=== PATIENT | female | born 1960 | race Caucasian/White ===

== ENCOUNTER 2018-08-18 08:37 | Inpatient (IN) ==
--- NOTE | 2018-08-05 10:40 | Anesthesiology Consultation ---
Date of Service August 05, 2018 Assessment & Plan (1) Encounter for pre-operative examination: Chart Review Chart Review: Acceptable Risk for Surgery and Patient seen in Pre Admission Testing Teaching & Discussion Instructed NPO after midnight before surgery, except medications with 15 cc of water. Medication instructions provided according to the PAT guidelines. History Surgery Operation Date: 08/18/18 08:30 Proposed Procedures p Right Total Knee Arthroplasty - Shayan Mares MD Height/Weight Height: 5 ft 3.5 in Weight: 70.7 kg Allergies Allergy/AdvReac Type Severity Reaction Status Date / Time Milk Containing Products Allergy Intermediate AGGRAVATES Verified 07/31/18 09:13 ASTHMA Sulfa (Sulfonamide Allergy Intermediate Rash Verified 07/31/18 09:11 Antibiotics) BEEF Allergy Intermediate AGGRAVATES Uncoded 07/31/18 09:13 ASTHMA PORK AdvReac Intermediate GERD Uncoded 07/31/18 09:13 Medications Home Medications Medication Instructions Recorded Confirmed Last Taken Allergy Shots 1 dose IM UD 07/31/18 07/31/18 Unknown fexofenadine [Jessica Allergy] 180 mg PO DAILY 07/31/18 07/31/18 Unknown fluticasone propionate [Flovent 1 puff INHALATION BID 07/31/18 07/31/18 Unknown HFA] sertraline [Zoloft] 25 mg PO QAM 07/31/18 07/31/18 Unknown Past Medical History Medical History Anxiety Asthma VERY rare rescue inhaler use Cardiac murmur Had echo 15+ years ago, was told of no concern. Degenerative disc disease Depression GERD (gastroesophageal reflux disease) NO MEDICATIONS, CONTROLLED WITH DIET. Migraine Osteoarthritis Past Family History Family History Mother Family history of diabetes mellitus Aunt Family history of diabetes mellitus Uncle Family history of diabetes mellitus Past Surgical History Surgical History H/O hemorrhoidectomy History of arthroscopy LEFT KNEE History of bilateral tubal ligation History of section X2 History of colonoscopy History of discectomy L4-L5 History of esophagogastroduodenoscopy (EGD) History of hysterectomy JIMMY WITH BSO History of tonsillectomy S/P LASIK surgery of both eyes Past Anesthesia History No Hx of Anesthesia Complications (other than single PONV episode) and No Family Hx of Anesthesia Complications History of PONV Yes (single episode with hemorrhoidectomy) Motion Sickness Screening History of Motion Sickness: No Social History Smoking Status: Never smoker Do You Dip or Chew Tobacco: No Hx Alcohol Use: Yes Alcohol type: beer and wine alcohol intake frequency: 0-2 drinks per day (1-2 daily) Hx Substance Use: No substance use type: does not use Exercise / Class Metabolic Activity II 4-5 Yardwork/Stairs/Walk up hill (Denies CP or SOB with stairs, using cane fo uneven surfaces/longer distances) Review of Systems Pt denies any recent chest pain, shortness of breath, palpitations, cough, fever or URI. +sinus infection in past 30 days s/p Z-pack, resolved. Physical Exam Vital Signs BP: 125/83 P: 82bpm SPO2: 97% RA T: 98.5 F R: 16 ENMT Mouth: + dentures (Permanent bottom, does not come out at all); no chipped teeth and no loose teeth Thyromental Distance: > or= 3.5 Finger Breadths (4) Mallampati Class: II Neck normal visual inspection; neck extension not limited Respiratory normal respiratory effort Auscultation: lungs clear to auscultation bilaterally Cardiovascular Rate/Rhythm: regular rate and regular rhythm Heart Sounds: + murmur (I/V systolic RSB) Vessels: no carotid bruit Extremities: no edema Testing Electrocardiogram Date: 08/05/18 Findings: + NSR @ (71) Chest X-Ray Date: 08/05/18 Findings: + NAD Laboratory Results 08/05/18 11:12 08/05/18 11:12 Blood Type A Positive 08/05/18 11:12 Antibody Screen NEGATIVE 08/05/18 11:12 PT 9.8 Seconds (9.0-12.0) 08/05/18 11:12 INR 1.0 (0.9-1.1) 08/05/18 11:12 APTT 25.6 Seconds (21.0-31.0) 08/05/18 11:12 Hemoglobin A1c 5.6 % (4.5-5.6) 08/05/18 11:12 Urine Color Yellow 08/05/18 11:12 Urine Appearance Clear (Clear) 08/05/18 11:12 Urine pH 7.0 (4.5-7.5) 08/05/18 11:12 Ur Specific Alexander 1.010 (1.000-1.030) 08/05/18 11:12 Urine Protein Negative (Negative) 08/05/18 11:12 Urine Glucose (UA) Negative (Negative) 08/05/18 11:12 Urine Ketones Negative (Negative) 08/05/18 11:12 Urine Nitrite Negative (Negative) 08/05/18 11:12 Ur Leukocyte Esterase Negative (Negative) 08/05/18 11:12 Urine WBC (Auto) 0 /hpf (0-5) 08/05/18 11:12 Urine RBC (Auto) 0-4 /hpf (0-4) 08/05/18 11:12 U Hyaline Cast (Auto) 0 /lpf (0-5) 08/05/18 11:12 U Epithel Cells (Auto) 5-10 /lpf (0-5) H 08/05/18 11:12 Urine Bacteria (Auto) Negative (Negative) 08/05/18 11:12
--- NOTE | 2018-08-05 10:41 | PAT Medication Instructions ---
Medication Instructions Date of Service August 05, 2018 Home Medications Allergy Shots 1 dose IM UD fexofenadine [Jessica Allergy] 180 mg PO DAILY fluticasone propionate [Flovent] 1 puff INHALATION BID sertraline [Zoloft] 25 mg PO QAM Continue as directed Allergy Shots 1 dose IM UD DO NOT take the morning of surgery fexofenadine [Jessica Allergy] 180 mg PO DAILY Take morning of surgery With a small sip of water, OTHERWISE NOTHING TO EAT OR DRINK AFTER MIDNIGHT: fluticasone propionate [Flovent] 1 puff INHALATION BID sertraline [Zoloft] 25 mg PO QAM Take evening before surgery fluticasone propionate [Flovent] 1 puff INHALATION BID Other Notes If you have any questions please call us at [phone] or [phone] or [phone] or [phone]
[2018-08-05 12:00] LABS: Basophils # (auto) 0.03 K/uL (0-0.2); Basophils % (auto) 0.6 %; Eosinophils # (auto) 0.03 K/uL (0-0.5); Eosinophils % (auto) 0.6 %; Hematocrit (blood only) 39.3 % (37-47); Hemoglobin 13.1 g/dL (12.0-16.0); Immature Granulocytes # (auto) 0.01 K/uL (0.00-0.02); Immature Granulocytes % (auto) 0.2 %; Lymphocytes # (auto) 1.27 K/uL (1.2-3.4); Lymphocytes % (auto) 23.5 %; Mean Corpuscular Hgb Conc 33.3 g/dL (32-36); Mean Corpuscular Volume 93.8 fL (80-100); Mean Platelet Volume 9.2 fL (7.4-10.4); Monocytes # (auto) 0.55 K/uL (0.11-0.59); Monocytes % (auto) 10.2 %; Neutrophils # (auto) 3.52 K/uL (1.4-6.5); Neutrophils % (auto) 64.9 %; Platelet Count 359 K/uL (130-400); RDW Coefficient of Variation 12.7 % (11.5-14.5); RDW Standard Deviation 43.5 fL (36.4-46.3); Red Blood Count 4.19 M/uL (4.2-5.4); White Blood Count 5.41 K/uL (4.8-10.8)
[2018-08-05 12:05] LABS: Appearance Urine Clear (Clear); Bacteria Urine Automated Negative (Negative); Bilirubin Urine Negative (Negative); Blood Urine Trace (Negative); Cast Urine Automated 0 /lpf (0-5); Color Urine Yellow; Glucose Urine UA Negative (Negative); Ketones Urine Negative (Negative); Leukocyte Esterase Urine Negative (Negative); Nitrite Urine Negative (Negative); Protein Urine Negative (Negative); RBC Urine Automated 0-4 /hpf (0-4); Urobilinogen Urine Negative (Negative); WBC Urine Automated 0 /hpf (0-5)
[2018-08-05 12:08] LABS: Albumin Level 3.7 gm/dl (3.4-5.0); BUN Creatinine Ratio 22.1 (10-20); Calcium 8.6 mg/dl (8.5-10.1); Creatinine Clr Calc Pharmacy 79.1 ml/min; Est GFR (African American) 104.5; Est GFR (Non-African American) 90.1; Potassium 4.1 mmol/L (3.5-5.1)
--- NOTE | 2018-08-05 12:09 | XRay Report ---
XR chest Pre-admission PA/Lat CLINICAL HISTORY: pat preoperative COMPARISON STUDY: No previous studies for comparison. FINDINGS: The bones soft tissues and hemidiaphragms are normal. The cardiomediastinal silhouette is n ormal. The lungs are clear. The pulmonary vasculature is normal. IMPRESSION: Negative chest. The above report was generated using voice recognition software. It may contain grammatical, syntax or spelling errors. Electronically signed by: Navin Hylton M.D. 08/05/2018 12:08 PM
[2018-08-05 12:15] LABS: Partial Thromboplastin Ratio 0.9; Partial Thromboplastin Time 25.6 Seconds (21.0-31.0); Prothrombin Time 9.8 Seconds (9.0-12.0)
[2018-08-05 12:22] LABS: Estimated Average Glucose 114 mg/dl; Hemoglobin A1C 5.6 % (4.5-5.6)
--- NOTE | 2018-08-12 16:04 | History and Physical Report ---
DATE OF ADMISSION: 08/18/2018 CHIEF COMPLAINT: Right knee pain. HISTORY OF PRESENT ILLNESS: The patient is a 57-year-old female with known severe patellofemoral arthritis about her bilateral knees, right worse than left. She has pain and disability with activities of daily living. She has pain with prolonged weightbearing and standing activities. She has difficulty with any kneeling, bending, or squatting activities. Due to ongoing pain and disability with activities of daily living, she now desires to proceed with right total knee arthroplasty. PAST MEDICAL HISTORY: Heart murmur, asthma, osteoarthritis, acid reflux. PAST SURGICAL HISTORY: x2, hysterectomy, left knee lateral release, left foot, low back surgery, tonsillectomy. MEDICATIONS: Zoloft 25 mg daily, Flovent inhaler twice daily, Jessica and Zyrtec daily. ALLERGIES: SULFA AND SEASONAL ALLERGIES. SOCIAL HISTORY AND REVIEW OF SYSTEMS: Noncontributory. PHYSICAL EXAMINATION: GENERAL: Well-nourished, well-developed female who appears stated age. HEENT: Normocephalic, atraumatic, extraocular movements intact, oropharynx pink and moist. NECK: Supple without adenopathy. LUNGS: Clear to auscultation bilaterally. HEART: Regular rate and rhythm. ABDOMEN: Soft, nontender, nondistended. EXTREMITIES: Upper extremities are within normal limits. The right knee has a neutral alignment. Range of motion is approximately 0-130 degrees. She has severe crepitus with range of motion. X-RAYS: X-rays were reviewed. She has moderate tibiofemoral arthritis with medial joint line osteophytes and mild joint line narrowing. She has severe patellofemoral arthritis with loss of the joint space and large osteophytes. IMPRESSION: Right knee degenerative joint disease, primarily patellofemoral in nature. PLAN: Risks versus benefits were discussed, consent was obtained. Will proceed with right total knee arthroplasty as indicated.
[~2018-08-18 08:37] MED LIST: ACETAMINOPHEN 500 MG TAB PO SCH; BUPIVACAINE 0.5 % 5 MG/1 ML PF 10ML VIAL ONE; CEFAZOLIN 1000MG 1,000 MG/7.5 ML SYR IV SCH; CeleBREX 200 MG CAP PO SCH; EPINEPHrine INJ 1 MG/ML AMP ONE; FAMOTIDINE 20 MG TAB PO SCH; GABAPENTIN 300 MG x 2 PO SCH; LR 500ML BOLUS, THEN 15ML/HR IV SCH; ROPIVACAINE 0.5% 5 MG/ML 30 ML VIAL ONE; ROPIVACAINE 0.5% HCL/PF 150 MG, BUPIVACAINE 0.5% MPF 30 ML, EPINEPHrine 30MG/30ML (OR U... INFIL SCH; TRANEXAMIC ACID 1,000 MG **IV Intra-op IV SCH; TRANEXAMIC ACID 1,000 MG **IV Pre-op IV SCH; dexAMETHasone 4 MG TAB PO SCH
[2018-08-18] MEDS ORDERED: fentaNYL citrate 100 MCG/2 ML VIAL ONE (08:58)
[2018-08-18] MEDS ORDERED: MIDAZOLAM HCL 1 MG/ML 2ML VIAL ONE ×2 (08:58→11:12)
--- NOTE | 2018-08-18 09:59 | History & Physical Bridge Note ---
Date of Service August 18, 2018 History & Physical Bridge Note I have examined the patient, reviewed the History & Physical and in the interval since the performance of the History & Physical I have noted the following changes of clinical significance: no changes noted
[2018-08-18] MEDS ORDERED: HYDROmorphone INJ 1 MG/ML SYRINGE IV PRN (10:03)
[2018-08-18] MEDS ORDERED: fentaNYL citrate 100 MCG/2 ML VIAL IV PRN (10:03)
[2018-08-18] MEDS ORDERED: MEPERIDINE HCL 25 MG/ML CARP IV PRN (10:03)
[2018-08-18] MEDS ORDERED: ATROPINE SULFATE 0.1 MG/ML 10ML SYR IV PRN (10:03)
[2018-08-18] MEDS ORDERED: ePHEDrine sulfate 50 MG/ML AMP IV PRN (10:03)
[2018-08-18] MEDS ORDERED: ONDANSETRON INJ 2 MG/ML 2 ML VIAL IV PRN ×2 (10:03→14:07)
[2018-08-18] MEDS ORDERED: PHENYLEPHRINE 100MCG/ML 5ML SYR IV PRN (10:03)
[2018-08-18] MEDS ORDERED: LABETALOL HCL IV 5 MG/ML 20ML IV PRN (10:03)
[2018-08-18] MEDS ORDERED: BACITRACIN INJ 50,000 UNIT VIAL ONE (10:32)
[2018-08-18] MEDS ORDERED: POVIDONE-IODINE OP SOLN 30 ML BTL ONE (10:32)
[2018-08-18] MEDS ORDERED: ORTHO JOINT ANESTHETIC ONE (10:32)
[2018-08-18] MEDS ORDERED: PROPOFOL IV EMULSION 10 MG/ML 20 ML VIAL IV ONE ×2 (11:13→11:56)
--- NOTE | 2018-08-18 12:04 | Operative Report ---
Post Operative Report Pre & Post Diagnosis Operation Date: 08/18/18 11:00 Pre-Op Diagnosis: Right Knee Osteoarthritis Post-Op Diagnosis: Right Knee Osteoarthritis Procedure Operation Date: 08/18/18 11:00 Actual Procedures p Right Total Knee Arthroplasty, Cemented(Right) - Shayan Mares MD Surgeon Shayan Mares MD Envelope Stuffer Yoana Estimated Blood Loss 10 Findings Consistent with Post-Op Diagnosis Specimens Bone fragments Disposition Accompanied Patient To Recovery: No Disposition: Recovery Room Description of Procedure Patient's right leg was prepped and draped in usual sterile manner. Limb was exsanguinated with an Esmarch bandage tourniquet inflated to 300 mmHg. Longitudinal incision was made subcutaneous tissue was sharply dissected electrocautery for hemostasis. Medium patella parapatellar incision was made the patella was everted and the knee was flexed. Fat pad was removed and the medial face of tibia was cleared of soft tissue using the Bovie and a Rm. Proximal tibia was osteotomized with oscillating saw this bone fragment was removed. Anterior posterior cruciate ligament were removed. Drill was used to get access to the femoral canal. A flexible guide claire was placed in the distal femoral cut was made. Facets of the distal femoral cut for a size #3 in these bone fragments were removed. Lamina can capper was utilized to remove the meniscal remnants and trial femur was impacted in position. Drill was placed for the femoral pegs and the trial femur was impacted in position. Tibia was subluxed anteriorly using a blunt and sharp home and the proximal tibia was prepared using an oscillating proximal tibia was prepared using a punch and mallet. Trial reduction was carried out using a size 13 which gave good reproduction of soft tissue tension in flexion and extension. Patella was reamed and a size 33 patella was chosen. The patella tracked well. Trial was removed pulsatile irrigation was utilized periarticular joint mix was utilized the Betadine soaked was utilized Hemovac drain was placed fascia was closed using #1 Vicryl subcutaneous tissue was closed using 0 Dexon skin was closed with wires sterile umbilicus applied. The patient tolerated procedure well Mr. Lees was utilized through all portions of the case including prepping draping surgical assistance wound closure and dressing application I attest to the content of the Intraoperative Record and any orders documented therein. Any exceptions are noted below.
--- NOTE | 2018-08-18 13:00 | XRay Report ---
XR knee RT 2V routine CLINICAL HISTORY: Surgical Post Op COMPARISON: None FINDINGS: Alignment of the total right knee arthroplasty is anatomic. There is no fracture or unexpe cted radiopaque foreign body. Drains are in place. IMPRESSION: Expected findings following total right knee arthroplasty. Electronically signed by: Raúl Palza M.D. 08/18/2018 12:59 PM
--- NOTE | 2018-08-18 13:34 | Anesthesiology Progress Note ---
Date of Service August 18, 2018 Anesthesia Post Procedure Vital Signs Vital Signs: Temp Pulse Pulse Resp BP Pulse Ox 08/18/18 13:25 98 H 16 110/88 99 08/18/18 13:15 36.8 C 94 H 16 126/87 96 08/18/18 13:05 90 16 128/80 95 08/18/18 12:55 97 H 18 125/75 97 08/18/18 12:45 93 H 14 107/65 100 08/18/18 12:35 36.9 C 100 H 14 118/64 98 08/18/18 09:14 36.6 C 80 18 153/90 H 18 L Pain Intensity Right Knee: Pain Intensity: 1 Notes Mental Status: alert / awake / arousable Patient Amnestic to Procedure: Yes Nausea / Vomiting: adequately controlled Pain: adequately controlled Airway Patency, RR, SpO2: stable & adequate BP & HR: stable & adequate Hydration State: stable & adequate Neuraxial Anesthesia: was administered and sensory block is resolving Anesthetic Complications: no major complications apparent and Pt Satisfied with anesthetic care
[2018-08-18] MEDS ORDERED: MAGNESIUM HYDROXIDE SUSP 30 ML UDC PO PRN (14:07)
[2018-08-18] MEDS ORDERED: BISACODYL 10 MG SUPP PR PRN (14:07)
[2018-08-18] MEDS ORDERED: NALOXONE HCL 0.4 MG/1 ML VIAL/CARP IV PRN (14:07)
[2018-08-18] MEDS: SODIUM CHLORIDE 0.9% 1000ML 1,000 ML IV SCH (14:53)
[2018-08-18] MEDS: ACETAMINOPHEN 500 MG TAB PO SCH ×2 (14:54→21:34)
[2018-08-18] MEDS: OXYCODONE HCL IR 5 MG TAB (IMMEDIATE RELEASE) PO PRN (16:01)
[2018-08-18] MEDS: FERROUS GLUCONATE 324 MG TAB PO SCH (18:16)
[2018-08-18] MEDS: CEFAZOLIN 1000MG 1,000 MG/7.5 ML SYR IV SCH (18:16)
[2018-08-18] MEDS: HYDROmorphone INJ 0.5 MG/0.5 ML SYR IV PRN (20:10)
[2018-08-18] MEDS: FLUTICASONE HFA 110MCG INHALER INH SCH (21:33)
[2018-08-18] MEDS: ASPIRIN 81 MG ECTAB PO SCH (21:34)
[2018-08-18] MEDS: SENNA 8.6 MG TAB PO SCH (21:34)
[2018-08-18] MEDS: DOCUSATE SODIUM 100 MG CAP PO SCH (21:34)
[2018-08-18] MEDS ORDERED: PROCHLORPERAZINE 10 MG in SYRINGE 8 ML IV ONE (22:30)
[2018-08-19] MEDS: HYDROmorphone INJ 0.5 MG/0.5 ML SYR IV PRN ×2 (00:05→16:24)
[2018-08-19] MEDS: SODIUM CHLORIDE 0.9% 1000ML 1,000 ML IV SCH (00:05)
[2018-08-19] MEDS: CEFAZOLIN 1000MG 1,000 MG/7.5 ML SYR IV SCH (02:23)
[2018-08-19] MEDS: ACETAMINOPHEN 500 MG TAB PO SCH ×3 (05:10→21:06)
[2018-08-19 05:49] LABS: Hematocrit (blood only) 34.9 % (37-47); Hemoglobin 11.6 g/dL (12.0-16.0); Mean Corpuscular Hgb Conc 33.2 g/dL (32-36); Mean Corpuscular Volume 92.8 fL (80-100); Mean Platelet Volume 9.2 fL (7.4-10.4); Platelet Count 260 K/uL (130-400); RDW Coefficient of Variation 12.7 % (11.5-14.5); RDW Standard Deviation 43.1 fL (36.4-46.3); Red Blood Count 3.76 M/uL (4.2-5.4); White Blood Count 11.91 K/uL (4.8-10.8)
[2018-08-19 06:22] LABS: BUN Creatinine Ratio 14.6 (10-20); Calcium 8.4 mg/dl (8.5-10.1); Creatinine Clr Calc Pharmacy 73.3 ml/min; Est GFR (African American) 94.3; Est GFR (Non-African American) 81.4; Potassium 4.4 mmol/L (3.5-5.1)
--- NOTE | 2018-08-19 07:32 | Orthopedic Progress Note ---
Date of Service August 19, 2018 Assessment & Plan (1) Status post right knee replacement: 58 yo female stable POD #1 s/p right TKA 1. Med management 2. DVT prophylaxis- ASA, SCDs 3. PT/OT 4. D/C planning- home w/ OPPT Subjective Pt resting in bed, pain controlled, denies complaints Physical Exam Vital Signs (Past 24 Hours): Last Vital Signs Temp 36.6 C 08/19/18 03:17 Pulse 82 08/19/18 03:17 Resp 14 08/19/18 03:17 BP 103/70 08/19/18 03:17 Pulse Ox 94 08/19/18 03:17 Physical Exam: Toes mobile, N/V/I, dressing and drain in place Results & Data Laboratory Results 08/19/18 08/19/18 08/18/18 Range/Units 05:32 05:32 09:28 WBC 11.91 H (4.8-10.8) K/uL RBC 3.76 L (4.2-5.4) M/uL Hgb 11.6 L (12.0-16.0) g/dL Hct 34.9 L (37-47) % MCV 92.8 (80-100) fL MCH 30.9 (25-34) pg MCHC 33.2 (32-36) g/dL RDW Std Deviation 43.1 (36.4-46.3) fL RDW Coeff of Griffin 12.7 (11.5-14.5) % Plt Count 260 (130-400) K/uL MPV 9.2 (7.4-10.4) fL Sodium 140 (136-145) mmol/L Potassium 4.4 (3.5-5.1) mmol/L Chloride 110 H (98-107) mmol/L Carbon Dioxide 26 (21-32) mmol/L Anion Gap 4.0 (3-11) BUN 12 (7-18) mg/dl Creatinine 0.79 (0.6-1.2) mg/dl Est Cr Clr Drug Dosing 73.3 ml/min Est GFR ( Amer) 94.3 Est GFR (Non-Af Amer) 81.4 BUN/Creatinine Ratio 14.6 (10-20) Glucose 124 H (70-99) mg/dl Calcium 8.4 L (8.5-10.1) mg/dl Hepatitis C Ab Screen Neg (Neg)
[2018-08-19] MEDS: ASPIRIN 81 MG ECTAB PO SCH ×2 (08:21→21:05)
[2018-08-19] MEDS: DOCUSATE SODIUM 100 MG CAP PO SCH ×2 (08:21→21:05)
[2018-08-19] MEDS: OXYCODONE HCL IR 5 MG TAB (IMMEDIATE RELEASE) PO PRN ×4 (08:21→22:53)
[2018-08-19] MEDS: FEXOFENADINE HCL 180 MG TAB PO SCH (08:22)
[2018-08-19] MEDS: FERROUS GLUCONATE 324 MG TAB PO SCH ×2 (08:22→18:32)
[2018-08-19] MEDS: SERTRALINE HCL 50 MG TABLET PO SCH (08:22)
[2018-08-19] MEDS: FLUTICASONE HFA 110MCG INHALER INH SCH ×2 (08:23→21:05)
[2018-08-19] MEDS: MULTIVITAMIN TAB PO SCH (08:23)
[2018-08-19] MEDS: SENNA 8.6 MG TAB PO SCH (21:06)
[2018-08-20] MEDS: OXYCODONE HCL IR 5 MG TAB (IMMEDIATE RELEASE) PO PRN ×3 (02:53→12:35)
[2018-08-20] MEDS: ACETAMINOPHEN 500 MG TAB PO SCH (05:17)
[2018-08-20] MEDS: ASPIRIN 81 MG ECTAB PO SCH (07:50)
[2018-08-20] MEDS: MULTIVITAMIN TAB PO SCH (07:51)
[2018-08-20] MEDS: SERTRALINE HCL 50 MG TABLET PO SCH (07:51)
[2018-08-20] MEDS: DOCUSATE SODIUM 100 MG CAP PO SCH (07:51)
[2018-08-20] MEDS: FERROUS GLUCONATE 324 MG TAB PO SCH (07:51)
[2018-08-20] MEDS: FEXOFENADINE HCL 180 MG TAB PO SCH (07:52)
[2018-08-20] MEDS: FLUTICASONE HFA 110MCG INHALER INH SCH (07:52)
--- NOTE | 2018-08-20 08:09 | Orthopedic Progress Note ---
Date of Service August 20, 2018 Assessment & Plan (1) Status post right knee replacement: 58 yo female stable POD #2 s/p right TKA 1. Med management 2. DVT prophylaxis- ASA, SCDs 3. PT/OT 4. D/C planning- home w/ OPPT; plan for home today Subjective Pt sitting in chair at bedside. No complaints this AM. Pain controlled. Denies SOB, CP,LH. Hoping to go home today. Physical Exam Vital Signs (Past 24 Hours): Last Vital Signs Temp 36.9 C 08/20/18 06:10 Pulse 90 08/20/18 06:10 Resp 16 08/20/18 06:10 BP 135/84 08/20/18 06:10 Pulse Ox 98 08/20/18 06:10 Physical Exam: Incision C/D/I. Zipline intact. Calves are soft, NT. NV intact. Toes mobile.
--- NOTE | 2018-08-25 00:53 | Discharge Summary ---
DISCHARGE DIAGNOSIS: Degenerative joint disease, right knee. SECONDARY DIAGNOSES: History of heart murmur, asthma, osteoarthritis, gastroesophageal reflux disease. CONSULTATIONS: None. COMPLICATIONS: None. PROCEDURES: Right total knee arthroplasty performed by Dr. Mares on 08/18/2018. BRIEF HISTORY: As dictated in the history and physical. HOSPITAL SUMMARY: The patient was admitted on the above-noted date and had the above-noted surgery performed which she tolerated well. On the first postoperative day, vital signs were stable and she was afebrile. She was resting in bed. Pain was controlled and had no complaints. Neurovascularly was intact. Toes were mobile. Dressings and drain were in place. Vital signs were stable as noted and hemoglobin was 11.6. She was started on physical therapy protocol and continued on DVT prophylaxis and pain management. By her second postoperative day, she was resting comfortably at the bedside in a chair. She had no complaints. Pain was controlled and was hoping to go home. Vital signs were stable. She was afebrile. Incision was clean, dry, and intact. ZipLine was intact. Calves were soft and nontender. Neurovascularly intact. Toes were mobile. She was progressing well with physical therapy. It was felt she could be discharged to home with plans for outpatient physical therapy. For further review, please see chart. LABORATORY AND X-RAY DATA: As per chart. DISCHARGE INSTRUCTIONS: The patient was discharged to home in satisfactory condition on 08/20/2018. DIET: Regular. ACTIVITY: Weightbearing as tolerated of the right lower extremity. Follow TK instruction sheets and special care instructions as noted. Follow up with Dr. Mares in 2 weeks. The patient to call for appointment if one has not been made for you. DISCHARGE MEDICATIONS: Acetaminophen 1000 mg p.o. q. 8 hours, aspirin 81 mg p.o. b.i.d., cefadroxil 500 mg p.o. b.i.d., oxycodone 5-10 mg p.o. q. 6 hours p.r.n., sennosides 17.2 mg p.o. at bedtime. Resume home meds as listed.
== END 2018-08-20 13:38 | disposition home or self-care (01) | DRG 470 ==
LOC: ASU 08:37 → 3E 12:43